=== PATIENT | male | born 2000 | race Caucasian/White ===

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

== ENCOUNTER → 2018-02-23 | Outpatient (CLI) | payer SELFPAY | END | disposition home or self-care (01) | LOC: LABWHC1 13:25 | PROVIDERS: ATTEND Psychiatry & Neurology Neurology | DX: G40.A09 Absence epileptic syndrome, not intractable, without status epilepticus (principal) | CPT/HCPCS: 36415; 80164 ==

== ENCOUNTER → 2019-03-02 | Outpatient (CLI) | payer OTHER ==
[2019-03-02 18:38] LABS: Valproic Acid (Depakene) 71.3 ug/mL (50.0-100.0)
== END | disposition home or self-care (01) ==
LOC: LABWHC1 12:18
PROVIDERS: ATTEND Psychiatry & Neurology Neurology
DX: G40.909 Epilepsy, unspecified, not intractable, without status epilepticus (principal)
CPT/HCPCS: 36415; 80164; 84450; 84460

== ENCOUNTER → 2019-05-17 | Outpatient (CLI) | payer OTHER ==
[2019-05-17 14:06] LABS: Basophils % (A) 1 %; Eosinophils # (A) 0.1 k/uL (0-0.7); Eosinophils % (A) 2 %; HCT 50.4 % (39.0-53.0); HGB 16.6 gm/dL (13.0-17.5); Lymphocytes # (A) 1.6 k/uL (1.0-4.8); Lymphocytes % (A) 32 %; MCH 28.1 pg (25.0-35.0); MCHC 32.9 g/dL (31.0-37.0); MCV 85.4 fL (80.0-100.0); Monocytes # (A) 0.5 k/uL (0-1.0); Monocytes % (A) 9 %; Neutrophils # (A) 2.9 k/uL (1.3-7.7); Neutrophils % (A) 55 %; Platelet Count 243 k/uL (150-450); RDW 13.4 % (11.5-15.5); WBC 5.2 k/uL (4.0-11.0)
[2019-05-17 15:01] LABS: Erythrocyte Sedimentation Rate 2 mm/hr (0-15)
[2019-05-17 18:56] LABS: Albumin 4.7 g/dL (3.80-4.90); Albumin/Globulin Ratio 2.35 (1.60-3.17); Anion Gap 9.4 mmol/L (4.00-12.00); BUN/Creat Ratio 11.25 Ratio (12.00-20.00); Calcium 9.5 mg/dL (8.7-10.3); Carbon Dioxide 27.6 mmol/L (21.6-31.8); Non-African American GFR(CKD) 128.6 (60.0-200.0); Potassium 4.5 mmol/L (3.5-5.5); Total Bilirubin 0.5 mg/dL (0.2-1.2); Total Protein 6.7 g/dL (6.2-8.2)
== END | disposition home or self-care (01) ==
LOC: LABWHC1 13:01
PROVIDERS: ATTEND Pediatrics
DX: R10.13 Epigastric pain (principal); K52.9 Noninfective gastroenteritis and colitis, unspecified
CPT/HCPCS: 36415; 80053; 82150; 83690; 85025; 85652

== ENCOUNTER 2019-05-19 12:46 | Outpatient (CLI) | payer OTHER | END 2019-05-19 13:50 | disposition home or self-care (01) | LOC: LABWHC1 12:46 → PEDOP 13:50 | PROVIDERS: ATTEND Pediatrics | DX: K52.9 Noninfective gastroenteritis and colitis, unspecified (principal); R10.13 Epigastric pain | CPT/HCPCS: 83013; 87328; 87329; 99212 ==

== ENCOUNTER 2023-03-06 11:54 | Day surgery (SDC) | payer OTHER, BC ==
[2023-03-05 08:40] VITALS: BMI 19.4
[~2023-03-06 11:54] MED LIST: LACTATED RINGERS 1,000 ML IV SCH
[2023-03-06 12:38] VITALS: RESP 16; TEMP 97.3
[2023-03-06] MEDS ORDERED: PROPOFOL 10 MG/ML 20 ML VIAL IV ONE (12:58)
--- NOTE | 2023-03-06 13:07 | P.PCN ---
Date of Procedure: 03/06/23 Procedure(s) Performed: BRIEF HISTORY: Patient is a 22-year-old, pleasant, white male scheduled for an upper endoscopy as a part of evaluation of GERD and epigastric pain for the last 6 months duration. He denies any nausea vomiting or recent weight loss. PROCEDURE PERFORMED: Esophagogastroduodenoscopy with biopsy. PREOPERATIVE DIAGNOSIS: GERD/ chronic epigastric pain of 6 months duration. IV sedation per anesthesia. PROCEDURE: After informed consent was obtained, the patient was brought into [facility] endoscopy unit. IV sedation was administered by Anesthesia under continuous monitoring. Initially the Olympus GIF-140 video endoscope was inserted into the mouth. Esophagus intubated without any difficulty. It was gradually advanced into the stomach and duodenum and carefully examined. The bulb and the second part of the duodenum appeared normal. The scope at this time was withdrawn to the stomach, adequately insufflated with air, and upon careful examination, mucosa of the antrum, had linear areas of erythema consistent with gastritis and biopsies were done from this area. Mucosa of the body, cardia and the fundus appeared normal. The scope was then withdrawn into the esophagus. The GE junction was located at 42 cm from the incisors. The esophagus appeared normal. There were no erosions or ulcerations seen, biopsies were done from the distal esophagus and the patient tolerated the procedure well. IMPRESSION: 1. Mild antral gastritis 2. No evidence of esophagitis or peptic ulcer disease. RECOMMENDATIONS: The findings of this examination were discussed with the patient as well as his family. He was advised to follow with the biopsy results. Use [id number] PPIs as needed if he has recurrent symptoms.
[2023-03-06 13:31] VITALS: BP 138/76; PULSE 67
== END 2023-03-06 13:50 | disposition home or self-care (01) ==
LOC: ORWHC2ENDO 11:54
PROVIDERS: ATTEND Internal Medicine Gastroenterology
DX: K29.50 Unspecified chronic gastritis without bleeding (principal); K21.00 Gastro-esophageal reflux disease with esophagitis, without bleeding; G89.29 Other chronic pain; F17.200 Nicotine dependence, unspecified, uncomplicated; G40.909 Epilepsy, unspecified, not intractable, without status epilepticus; K21.9 Gastro-esophageal reflux disease without esophagitis; Z79.899 Other long term (current) drug therapy
CPT/HCPCS: 88305; 43239; J2704